=== PATIENT | male | born 1950 | race Caucasian/White ===

== ENCOUNTER → 2016-12-29 | Outpatient (CLI) | payer OTHER ==
--- NOTE | 2017-01-01 12:59 | PCVCIMAG ---
APPROVED REPORT Exam: Stress Echocardiogram Indication: CAD,s/p stent LAD,htn,hlp Patient Location: Echo lab Stress Nurse: Roberta Enriquez RN Room #: 2 Status: routine Ht: 5 ft 7 in HR: 66 bpm BP: 130/84 mmHg Rhythm: SR, First degree AV Block Medical History Medical History: CAD s/p stent, HTN, Hyperlipidemia Cardiac Risk Factors: HTN, Hyperlipidemia Previous Cardiac Procedures: PCI Pretest Chest Pain Characteristics: No chest pain Exercise History: Physically active Procedure The patient underwent an Exercise Stress Test using the Memo Protocol. Blood pressure, heart rate, and EKG were monitored. An Echocardiogram was performed by manufacturing test technician in four stages in quad fashion. At peak stress, four selected images were obtained and placed side by side with resting images for comparison. Stress Test Details Stress Test: Exercise stress testing was performed using a Memo protocol. HR Resting HR: 62 bpmMax Heart Rate (APMHR): 154 bpm Max HR Achieved: 126 bpmTarget HR (85% APMHR): 130 bpm % of APMHR: 81 Recovery HR: 71 bpm HR response to stress: Normal HR response to stress BP Resting BP: 130/84 mmHg Max BP: 162/72 mmHg Recovery BP: 122/76 mmHg ECG Resting ECG: Sinus Rhythm, 1st degree AV block Stress ECG: Sinus Rhythm, 1st degree AV block ST Change: Non-ischemic Maximum ST Deviation: 0.3 mm Arrhythmia: occasional PVCs Recovery ECG: Sinus Rhythm, 1st degree AV block Recovery ST Change: Non-ischemic Recovery ST Deviation: 0.1 mm Recovery Arrhythmia: None Clinical Reason for Termination: Maximal effort Stress Symptoms: none Exercise duration: 7 min 52 sec Highest Stage Achieved: Stage 3: 3.4 mph at 14% grade. Exercise capacity: 10.4 METs Overall Exercise Capacity for Age: Average Angina Score: None Stress ECG Conclusion The patient exercised according to the Memo Protocol for 7:52 minutes, achieving a maximum work level of 10.4 METS. The resting heart rate of 67 bpm, cameron to a maximal level of 126 bpm. This value represents 81 % of the maximal, age-predicted heart rate. The resting blood pressure of 130/84 mmHg, cameron to a maximum blood pressure of 162/72 mmHg. The exercise was stopped due to fatigue . Nick Treadmill Score is 5.5 which is Low risk. Pre-Stress Echo The resting Echocardiogram showed normal left ventricular contractility with an estimated Ejection Fraction of about 55-60%. Normal wall motion in all segments on baseline images. Post-Stress Echo The stress Echocardiogram showed normal left ventricular contractility with an estimated Ejection Fraction of about 65-70%. Normal augmentation of wall motion in all segments on post stress images. Clinical No clinical or ECG evidence for ischemia. Conclusion Clinical Response: Non-ischemic Exercise Capacity: Average Stress ECG Response: Non-ischemic Stress Echo Images: Non-ischemic No clinical, EKG or echocardiographic evidence for ischemia. No echocardiographic evidence for exercise induced ischemia. Normal stress echocardiogram with maximal exercise stress. <Conclusion> No clinical, EKG or echocardiographic evidence for ischemia. No echocardiographic evidence for exercise induced ischemia. Normal stress echocardiogram with maximal exercise stress.
== END | disposition home or self-care (01) ==
LOC: PCVCIMAG 10:38
PROVIDERS: ATTEND Internal Medicine Cardiovascular Disease
DX: I25.10 Atherosclerotic heart disease of native coronary artery without angina pectoris (principal); I10 Essential (primary) hypertension; E78.5 Hyperlipidemia, unspecified; I44.0 Atrioventricular block, first degree; Z95.5 Presence of coronary angioplasty implant and graft
CPT/HCPCS: 93325; 93351

== ENCOUNTER → 2017-11-02 | Outpatient (CLI) | payer OTHER | END | disposition home or self-care (01) | LOC: PCVCCLINIC 11:00 | PROVIDERS: ATTEND Internal Medicine Cardiovascular Disease | DX: I25.10 Atherosclerotic heart disease of native coronary artery without angina pectoris (principal); I10 Essential (primary) hypertension; E78.00 Pure hypercholesterolemia, unspecified; F10.10 Alcohol abuse, uncomplicated; R94.31 Abnormal electrocardiogram [ECG] [EKG]; Z79.899 Other long term (current) drug therapy | CPT/HCPCS: 80061; 93005; G0463 ==

== ENCOUNTER → 2018-09-13 | Outpatient (CLI) | payer MEDICARE ==
--- NOTE | 2018-09-13 13:43 | PCVCIMAG ---
APPROVED REPORT Study performed: 09/13/2018 10:25:19 Exam: Stress Echocardiogram Indication: CAD s/p PCI, Hypertension Patient Location: Echo lab Stress Nurse: Sarita Almaraz RN Room #: 2 Status: routine Ht: 5 ft 7 in HR: 80 bpm BP: 118/74 mmHg Rhythm: NSR Medical History Medical History: CAD s/p stent, Hyperlipidemia, HTN Cardiac Risk Factors: Hyperlipidemia, HTN Previous Cardiac Procedures: PCI Pretest Chest Pain Characteristics: No chest pain Exercise History: Indeterminate Physical Disabilities: knee pain Procedure The patient underwent an Exercise Stress Test using the Kelvin Protocol. Blood pressure, heart rate, and EKG were monitored. An Echocardiogram was performed by fill technician in four stages in quad fashion. At peak stress, four selected images were obtained and placed side by side with resting images for comparison. Stress Test Details Stress Test: Exercise stress testing was performed using a Kelvin protocol. HR Resting HR: 80 bpmMax Heart Rate (APMHR): 152 bpm Max HR Achieved: 162 bpmTarget HR (85% APMHR): 129 bpm % of APMHR: 106 Recovery HR: 91 bpm HR response to stress: Normal HR response to stress BP Resting BP: 118/74 mmHg Max BP: 174/86 mmHg Recovery BP: 136/74 mmHg BP response to stress: Normal blood pressure response to stress. ECG Resting ECG: Sinus Rhythm Stress ECG: Sinus Rhythm, NSSTT changes ST Change: Non-ischemic Maximum ST Deviation: 0.25 mm Arrhythmia: Rare PVCs Recovery ECG: Sinus Rhythm Recovery ST Change: Non-ischemic Recovery ST Deviation: 0.45 mm Recovery Arrhythmia: None Clinical Reason for Termination: Maximal effort Stress Symptoms: Dyspnea, Leg Fatigue Exercise duration: 7 min 30 sec Highest Stage Achieved: Stage 3: 3.4 mph at 14% grade. Exercise capacity: 7.7 METs Overall Exercise Capacity for Age: Average Scale: Active Angina Score: None No complications. Stress ECG Conclusion The patient exercised according to the KELVIN protocol for 7:30 mins; achieving a work level of 7.7 METS. The resting heart rate of 80 bpm cameron to a maximum heart rate of162 bpm. This value represents 106% of the maximal, age-predicted heart rate. The resting blood pressure of 118/74 mmHg, cameron to a maximum blood pressure of 174/86 mmHg. The exercise test was stopped due to fatigue. Nick Treadmill Score is 5.8 which is Low risk. Pre-Stress Echo The resting Echocardiogram showed normal left ventricular contractility with an estimated Ejection Fraction of about 55-60%. Normal wall motion in all segments on baseline images. Post-Stress Echo The stress Echocardiogram showed normal left ventricular contractility with an estimated Ejection Fraction of about 65-70%. Normal augmentation of wall motion in all segments on post stress images. Clinical No clinical or ECG evidence for ischemia. Conclusion Clinical Response: Non-ischemic Exercise Capacity: Average Stress ECG Response: Non-ischemic Stress Echo Images: Non-ischemic No clinical, EKG or echocardiographic evidence for ischemia. No echocardiographic evidence for exercise induced ischemia. Normal stress echocardiogram with maximal exercise stress. <Conclusion> No clinical, EKG or echocardiographic evidence for ischemia. No echocardiographic evidence for exercise induced ischemia. Normal stress echocardiogram with maximal exercise stress.
== END | disposition home or self-care (01) ==
LOC: PCVCIMAG 10:00
PROVIDERS: ATTEND Internal Medicine Cardiovascular Disease
DX: I25.10 Atherosclerotic heart disease of native coronary artery without angina pectoris (principal); I10 Essential (primary) hypertension; E78.5 Hyperlipidemia, unspecified
CPT/HCPCS: 36415; 80061; 93325; 93351